=== PATIENT | female | born 1940 | race Caucasian/White ===

== ENCOUNTER 2017-05-18 10:12 | Emergency (ER) | payer OTHER ==
[~2017-05-18] VITALS: Ht 149.9 cm; Wt 59.0 kg
[~2017-05-18 10:12] MED LIST: ATENOLOL25 MG; FIORICET 50-321 EACH PO; NAPROXEN500 M1 PO; NEURONTIN800 MG PO; OXCARBAZEPINE300 MG; PRILOSEC40 MG; PROTONIX40 MG PO; RYBIX ODT50 MG; SEPTRA DS TABLE1 TAB PO; VERELAN PM200 MG PO; ZOFRAN4 MG SL
[2017-05-18] MEDS ORDERED: MEDROLPACK PO (14:03)
[2017-05-18] MEDS ORDERED: TUSSI PRES-B L120 M1 PO (14:03)
== END 2017-05-18 14:40 | disposition home or self-care (01) ==
LOC: ER 10:12
DX: B34.9 Viral infection, unspecified (principal); J11.1 Influenza due to unidentified influenza virus with other respiratory manifestations

== ENCOUNTER → 2017-08-19 | Outpatient (CLI) | payer OTHER ==
[~2017-08-19] MED LIST changes: +MEDROLPACK PO; +TUSSI PRES-B L120 M1 PO
== END | disposition home or self-care (01) ==
LOC: RAD 09:54
DX: I11.9 Hypertensive heart disease without heart failure (principal); J45.20 Mild intermittent asthma, uncomplicated

== ENCOUNTER 2017-12-16 08:10 | Outpatient (CLI) | payer OTHER | END 2017-12-16 08:16 | disposition home or self-care (01) | LOC: SONOGRAMA 08:10 → MAMO-SONO 08:10 → NUCLEAR 10:00 | DX: Z12.31 Encounter for screening mammogram for malignant neoplasm of breast (principal); Z87.898 Personal history of other specified conditions; Z12.39 Encounter for other screening for malignant neoplasm of breast; M81.0 Age-related osteoporosis without current pathological fracture ==

== ENCOUNTER → 2018-03-04 08:54 | Outpatient (CLI) | payer OTHER | END | disposition home or self-care (01) | LOC: LAB 08:54 | DX: D68.8 Other specified coagulation defects (principal); I10 Essential (primary) hypertension; N39.0 Urinary tract infection, site not specified; E11.9 Type 2 diabetes mellitus without complications ==

== ENCOUNTER 2018-03-04 10:15 | Outpatient (CLI) | payer OTHER | END 2018-03-04 10:21 | disposition home or self-care (01) | LOC: RAD 10:15 | DX: Z01.818 Encounter for other preprocedural examination (principal) ==

== ENCOUNTER 2018-06-07 09:50 | Outpatient (CLI) | payer OTHER | END 2018-06-07 09:59 | disposition home or self-care (01) | LOC: LAB 09:50 | DX: D64.89 Other specified anemias (principal); E03.4 Atrophy of thyroid (acquired); E78.00 Pure hypercholesterolemia, unspecified; E11.9 Type 2 diabetes mellitus without complications ==

== ENCOUNTER 2018-07-07 14:12 | Outpatient (CLI) | payer OTHER | END 2018-07-07 14:35 | disposition HB | LOC: LAB 14:12 | DX: G50.0 Trigeminal neuralgia (principal) ==

== ENCOUNTER 2018-08-02 08:26 | Outpatient (CLI) | payer OTHER | END 2018-08-02 09:18 | disposition home or self-care (01) | LOC: MRI 08:26 | DX: G40.209 Localization-related (focal) (partial) symptomatic epilepsy and epileptic syndromes with complex partial seizures, not intractable, without status epilepticus (principal) | CPT/HCPCS: 70553; A9575 ==

== ENCOUNTER 2018-10-12 08:44 | Outpatient (CLI) | payer OTHER | END 2018-10-12 08:50 | disposition home or self-care (01) | LOC: RAD 08:44 | DX: M25.511 Pain in right shoulder (principal) ==

== ENCOUNTER 2018-11-08 09:48 | Outpatient (CLI) | payer OTHER | END 2018-11-08 09:49 | disposition home or self-care (01) | LOC: RAD 09:48 | DX: M54.2 Cervicalgia (principal) ==

== ENCOUNTER 2018-11-18 07:34 | Outpatient (CLI) | payer OTHER | END 2018-11-18 07:45 | disposition home or self-care (01) | LOC: LAB 07:34 | DX: D64.89 Other specified anemias (principal); E11.9 Type 2 diabetes mellitus without complications; E78.00 Pure hypercholesterolemia, unspecified; E03.8 Other specified hypothyroidism ==

== ENCOUNTER → 2019-10-18 06:55 | Outpatient (CLI) | payer OTHER | END | disposition home or self-care (01) | LOC: LAB 06:55 | PROVIDERS: ATTEND Internal Medicine Cardiovascular Disease | DX: E11.9 Type 2 diabetes mellitus without complications (principal); I10 Essential (primary) hypertension; E03.8 Other specified hypothyroidism; E78.2 Mixed hyperlipidemia; M81.0 Age-related osteoporosis without current pathological fracture; Z12.11 Encounter for screening for malignant neoplasm of colon ==

== ENCOUNTER 2019-10-20 09:12 | Outpatient (CLI) | payer OTHER | END 2019-10-20 09:17 | disposition home or self-care (01) | LOC: LAB 09:12 | PROVIDERS: ATTEND Internal Medicine Cardiovascular Disease | DX: E11.9 Type 2 diabetes mellitus without complications (principal); I10 Essential (primary) hypertension; E03.8 Other specified hypothyroidism; E78.2 Mixed hyperlipidemia; M81.0 Age-related osteoporosis without current pathological fracture; Z12.11 Encounter for screening for malignant neoplasm of colon ==

== ENCOUNTER → 2020-01-24 08:46 | Outpatient (CLI) | payer OTHER | END | disposition home or self-care (01) | LOC: LAB 08:46 | PROVIDERS: ATTEND Internal Medicine Cardiovascular Disease | DX: E03.8 Other specified hypothyroidism (principal); I10 Essential (primary) hypertension; E11.9 Type 2 diabetes mellitus without complications; E78.2 Mixed hyperlipidemia; N39.0 Urinary tract infection, site not specified ==

== ENCOUNTER 2020-04-11 08:13 | Outpatient (CLI) | payer OTHER | END 2020-04-11 08:25 | disposition home or self-care (01) | LOC: NUCLEAR 08:13 | PROVIDERS: ATTEND Internal Medicine Cardiovascular Disease | DX: I87.2 Venous insufficiency (chronic) (peripheral) (principal) ==

== ENCOUNTER 2020-04-27 06:46 | Outpatient (CLI) | payer OTHER | END 2020-04-27 06:49 | disposition home or self-care (01) | LOC: NUCLEAR 06:46 | PROVIDERS: ATTEND Internal Medicine Cardiovascular Disease | DX: R07.89 Other chest pain (principal) | CPT/HCPCS: 78452; 93017; A9500; J0153 ==

== ENCOUNTER 2020-05-23 06:56 | Outpatient (CLI) | payer OTHER | END 2020-05-23 07:07 | disposition home or self-care (01) | LOC: LAB 06:56 | PROVIDERS: ATTEND Internal Medicine Cardiovascular Disease | DX: E03.8 Other specified hypothyroidism (principal); I10 Essential (primary) hypertension; E11.9 Type 2 diabetes mellitus without complications; E78.2 Mixed hyperlipidemia; Z12.11 Encounter for screening for malignant neoplasm of colon ==

== ENCOUNTER 2020-08-27 09:56 | Outpatient (CLI) | payer OTHER | END 2020-08-27 09:59 | disposition home or self-care (01) | LOC: LAB 09:56 | PROVIDERS: ATTEND Radiology Diagnostic Radiology | DX: G50.0 Trigeminal neuralgia (principal) ==

== ENCOUNTER 2020-09-03 07:06 | Outpatient (CLI) | payer OTHER | END 2020-09-03 07:14 | disposition home or self-care (01) | LOC: MRI 07:06 | DX: G50.0 Trigeminal neuralgia (principal) | CPT/HCPCS: 70553; A9579 ==

== ENCOUNTER → 2020-12-06 07:12 | Outpatient (CLI) | payer OTHER ==
[~2020-12-06 07:12] MED LIST changes: +CELEBREX100 MG PO
== END | disposition home or self-care (01) ==
LOC: LAB 07:12
PROVIDERS: ATTEND Neurological Surgery
DX: G50.0 Trigeminal neuralgia (principal); G50.8 Other disorders of trigeminal nerve; M41.84 Other forms of scoliosis, thoracic region

== ENCOUNTER 2020-12-06 08:21 | Emergency (ER) | payer OTHER ==
[~2020-12-06] VITALS: Ht 144.8 cm; Wt 45.4 kg
[~2020-12-06 08:21] MED LIST changes: -CELEBREX100 MG PO
[2020-12-06] MEDS ORDERED: CELEBREX100 MG PO (09:30)
== END 2020-12-06 09:47 | disposition home or self-care (01) ==
LOC: ER 08:21
DX: S70.01XA Contusion of right hip, initial encounter (principal); S60.012A Contusion of left thumb without damage to nail, initial encounter; W18.39XA Other fall on same level, initial encounter; Y93.89 Activity, other specified; Y92.238 Other place in hospital as the place of occurrence of the external cause; Y99.8 Other external cause status

== ENCOUNTER 2021-07-19 08:20 | Outpatient (CLI) | payer OTHER ==
[~2021-07-19 08:20] MED LIST changes: +CELEBREX100 MG PO
== END 2021-07-19 09:00 | disposition home or self-care (01) ==
LOC: RAD 08:20
PROVIDERS: ATTEND Internal Medicine Cardiovascular Disease
DX: M12.9 Arthropathy, unspecified (principal); M48.47XA Fatigue fracture of vertebra, lumbosacral region, initial encounter for fracture; J44.9 Chronic obstructive pulmonary disease, unspecified

== ENCOUNTER 2021-12-18 10:45 | Outpatient (CLI) | payer OTHER | END 2021-12-18 10:50 | disposition home or self-care (01) | LOC: LAB 10:45 | DX: N18.9 Chronic kidney disease, unspecified (principal) ==

== ENCOUNTER 2022-01-03 07:54 | Outpatient (CLI) | payer OTHER | END 2022-01-03 08:05 | disposition home or self-care (01) | LOC: MRI 07:54 | PROVIDERS: ATTEND Psychiatry & Neurology Neurology | DX: G50.0 Trigeminal neuralgia (principal); I67.1 Cerebral aneurysm, nonruptured | CPT/HCPCS: 70546; 70553; Q9965; 70545 ==

== ENCOUNTER 2022-08-28 11:06 | Outpatient (CLI) | payer OTHER | END 2022-08-28 11:09 | disposition home or self-care (01) | LOC: RAD 11:06 | PROVIDERS: ATTEND Internal Medicine Rheumatology | DX: M17.9 Osteoarthritis of knee, unspecified (principal) ==

== ENCOUNTER 2022-11-07 08:17 | Outpatient (CLI) | payer OTHER | END 2022-11-07 08:18 | disposition home or self-care (01) | LOC: RAD 08:17 | PROVIDERS: ATTEND Internal Medicine Pulmonary Disease | DX: J45.30 Mild persistent asthma, uncomplicated (principal) ==

== ENCOUNTER 2025-05-02 08:58 | Outpatient (CLI) | payer OTHER | END 2025-05-02 09:02 | disposition home or self-care (01) | LOC: RAD 08:58 | PROVIDERS: ATTEND Internal Medicine Rheumatology | DX: M17.9 Osteoarthritis of knee, unspecified (principal) ==